=== PATIENT | female | born 1990 | race Caucasian/White ===

== ENCOUNTER 2017-02-17 05:03 | Inpatient (IN) ==
--- NOTE | 2017-02-16 16:09 | HISTORY AND PHYSICAL ---
ADMITTING DIAGNOSES: 1. Term for repeat section. 2. Tubal sterilization. SUMMARY: Zohreh Munson is a 26-year-old, 4, para 1-0-2-1, who is at term gestation. She is requesting a repeat . She also desires tubal sterilization. She is aware that this is a permanent and nonreversible procedure. She is aware of the alternative control methods available to her. We have also discussed the recognized failure rate of tubal sterilization. PAST MEDICAL HISTORY: Patient has had a previous section. She has also had a spontaneous AB and she has had an ectopic that required a right salpingo-oophorectomy. CURRENT MEDICATIONS: vitamins. ALLERGIES: None. PHYSICAL EXAMINATION: GENERAL: Shows a well-developed, well-nourished, gravid female. VITAL SIGNS: Stable. She is afebrile. CARDIOVASCULAR: Regular rate and rhythm without murmurs, rubs, or gallops. PULMONARY: Clear. BREASTS: No masses. ABDOMEN: Gravid. Cervix is closed. EXTREMITIES: No clubbing, edema or cyanosis. IMPRESSION: 1. Term . 2. Previous requesting repeat . 3. Undesired fertility. PLAN: We will proceed with repeat and tubal sterilization. Risks of surgery including pain, bleeding, infection, bowel or bladder injury, anesthesia complications have been discussed. We again discussed permanent nonreversible nature of tubal sterilization. cc: Bruno Escobar MD
[2017-02-17] MEDS ORDERED: KEFZOL 1 GM/D5W 1 GM/50 ML IVPB IV PRN (05:04)
[2017-02-17] MEDS ORDERED: LR 1,000 ML IV SCH ×2 (05:04→06:00)
[2017-02-17] MEDS ORDERED: BICITRA PO ONE (05:45)
[2017-02-17] MEDS ORDERED: PEPCID IV ONE (05:45)
[2017-02-17 05:49] LABS: URINE SOURCE VOIDED
[2017-02-17 05:49] LABS: MANUAL DIFF NEEDED? NO
[2017-02-17 05:50] LABS: BASO% 0.4 % (0.0-0.8); EOS# 0.16 X1000 (0.0-0.7); EOS% 1.4 % (0.0-10.0); HEMATOCRIT 34.5 % (37.0-47.0); HEMOGLOBIN 11.9 g/dL (12.0-16.0); IMM GRAN# 0.12 X1000 (0.0-0.04); IMM GRAN% 1.1 % (0.0-0.5); LYMPH# 2.72 X1000 (1.2-3.4); LYMPH% 24.4 % (20.5-51.1); MCH 31.3 PG (27-31); MCHC 34.5 g/dL (33-37); MCV 90.8 FL (81-99); MONO# 1.18 X1000 (0.11-0.59); MONO% 10.6 % (1.7-9.3); MPV 10.9 FL (7.4-10.4); NEUT% 62.1 % (42.2-75.2); PLT 227 X1000 (130-400)
[2017-02-17 06:04] LABS: BILIRUBIN URINE NEGATIVE (NEGATIVE); BLOOD URINE NEGATIVE (NEGATIVE); CLARITY CLEAR (CLEAR); COLOR YELLOW; GLUCOSE URINE NEGATIVE (NEGATIVE); LEUKOCYTES URINE 1+ (NEGATIVE); NITRITE URINE NEGATIVE (NEGATIVE); PROTEIN URINE NEGATIVE (NEGATIVE); SP GRAVITY URINE 1.015; UROBILINOGEN URINE NORMAL
[2017-02-17 06:08] LABS: UR AMPHETAMINES QUAL NONE DETECTED (NONE DETECT); UR BARBITUATES QUAL NONE DETECTED (NONE DETECT); UR BENZODIAZEPIN QUAL NONE DETECTED (NONE DETECT); UR CANNABINOIDS QUAL NONE DETECTED (NONE DETECT); UR COCAINE QUAL NONE DETECTED (NONE DETECT); UR MDMA QUAL NONE DETECTED (NONE DETECT); UR METHADONE QUAL NONE DETECTED (NONE DETECT); UR METHAMPHETAMINE QUAL NONE DETECTED (NONE DETECT); UR OPIATES QUAL NONE DETECTED (NONE DETECT); UR OXYCODONE QUAL NONE DETECTED (NONE DETECT); UR PCP QUAL NONE DETECTED (NONE DETECT); UR TCA QUAL NONE DETECTED (NONE DETECT)
[2017-02-17] MEDS ORDERED: DURAMORPH ONE (06:34)
[2017-02-17] MEDS ORDERED: NS 100 ML ONE (07:01)
[2017-02-17] MEDS ORDERED: NEO-SYNEPHRINE ONE (07:01)
[2017-02-17] MEDS ORDERED: ZOFRAN ONE (07:05)
[2017-02-17] MEDS ORDERED: PITOCIN ONE (07:07)
[2017-02-17] MEDS ORDERED: METHERGINE ONE (07:11)
[2017-02-17] MEDS ORDERED: PITOCIN 20 UNITS/LR 40 UNITS/2,000 ML IV.SOLN ONE (07:11)
[2017-02-17] MEDS ORDERED: TORADOL ONE (07:30)
--- NOTE | 2017-02-17 08:01 | OPERATIVE NOTE ---
PROCEDURE DATE: 02/17/2017 SURGEON: Bruno Escobar MD GASKET MAKER: Vito Shanks MD ANESTHESIA: Spinal. OPERATION PERFORMED: Repeat low transverse with bilateral fimbriectomy. PREOPERATIVE DIAGNOSES: 1. Term . 2. Previous requesting repeat section. 3. Undesired fertility. POSTOPERATIVE DIAGNOSES: 1. Term . 2. Previous requesting repeat section. 3. Undesired fertility. FINDINGS: At 0707, a 7 pound 1 ounce male infant was delivered in a vertex presentation. Apgars were 9 at 1 minute and 10 at 5 minutes. The proximal portion of the right tube was surgically absent. The fimbria was still present PROCEDURE IN DETAIL: The patient was taken back to the operating room where spinal anesthetic was placed. She was then placed in the supine position with the left lateral tilt. The abdomen was prepped and draped in the usual sterile fashion after Holt catheter was placed. Once satisfactory conduction anesthesia was demonstrated, a repeat Pfannenstiel incision was made. This incision was taken down to the fascia. The fascia was excised transversely. The underlying rectus muscles were bluntly and sharply dissected free. The rectus muscle were in the midline. The peritoneum was entered. Lower uterine segment was identified and a bladder flap was created. A low transverse incision was made across the myometrium. This incision was extended laterally using digital pressure. Membranes were ruptured revealing clear fluid. The infant's head was delivered through this incision without difficulty. The nuchal cord was reduced. The shoulders and body delivered without complications. Oropharynx was bulb suctioned. The cord was clamped and cut, and was handed to the nurses for further care and evaluation. Cord blood was obtained. Placenta was manually removed. The uterus delivered on abdominal wall and explored. All membrane fragments removed. The myometrium was then reapproximated using a running #1 chromic interlocking suture. Complete hemostasis was noted across the suture line. At this point, the left fallopian tube was identified and a fimbriectomy was performed by doubly ligating the distal portion of the tube and excising the fimbriated end. The patient previously had an ectopic on the right side and the proximal portion of the tube was missing. There was a rather long piece of fimbria and to decrease the risk of any ectopic , that distal portion of the tube was doubly ligated and excised. The uterus was placed back in pelvic cavity. Uterine incision and tubal ligation sites were identified and found to be hemostatic. Our first sponge, instrument, and needle count reported as correct. Thus, the peritoneum was closed using a running chromic suture. Second sponge, instrument, and needle count reported as correct. The fascia closed using running Vicryl sutures x2. The adipose tissue was reapproximated using a running 3-0 Vicryl suture, and the skin edges were reapproximated using a 4-0 Biosyn. Blood loss estimated at 500 mL. There were no complications. The patient went to recovery room in stable condition. cc: Bruno Escobar MD
[2017-02-17] MEDS ORDERED: NARCAN INJ PRN (08:28)
[2017-02-17] MEDS ORDERED: ZOFRAN ODT PO PRN (08:28)
[2017-02-17] MEDS ORDERED: BENADRYL IV PRN (08:28)
[2017-02-17] MEDS ORDERED: ZOFRAN IV PRN ×2 (08:28)
[2017-02-17] MEDS ORDERED: PNEUMOVAX 23 IM ONE (08:30)
[2017-02-17] MEDS ORDERED: LR 500 ML IV ONE (12:45)
[2017-02-17] MEDS: TORADOL IV PRN ×2 (12:56→19:33)
[2017-02-17] MEDS: PITOCIN 10 UNITS/LR 10 UNIT/1,000 ML IV.SOLN IV SCH ×2 (13:53→21:55)
[2017-02-17] MEDS: MORPHINE IV PRN ×3 (16:34→21:28)
[2017-02-17] MEDS ORDERED: PITOCIN 20 UNITS/LR 20 UNITS/1,000 ML IV.SOLN IV ONE (16:47)
[2017-02-17] MEDS ORDERED: AMBIEN PO PRN (16:47)
[2017-02-17] MEDS ORDERED: HYDROXYZINE IM PRN (16:47)
[2017-02-17] MEDS ORDERED: CYTOTEC PO PRN (16:47)
[2017-02-17] MEDS ORDERED: HYDROXYZINE PO PRN (16:47)
[2017-02-17] MEDS ORDERED: BOOSTRIX VACCINE IM ONE (16:47)
[2017-02-17] MEDS ORDERED: PITOCIN IM PRN (16:47)
[2017-02-17] MEDS ORDERED: DEMEROL PO PRN ×2 (16:47)
[2017-02-17] MEDS ORDERED: DULCOLAX PR PRN (16:47)
[2017-02-17] MEDS ORDERED: DEMEROL IM PRN (16:47)
[2017-02-17] MEDS ORDERED: PHENERGAN IM PRN (16:47)
[2017-02-17] MEDS ORDERED: M-M-R II VACCINE SUBQ ONE (16:47)
[2017-02-17] MEDS ORDERED: MYLICON PO PRN (16:47)
[2017-02-17] MEDS ORDERED: PERCOCET-5 PO PRN (16:47)
[2017-02-17] MEDS ORDERED: PITOCIN 10 UNITS/LR 10 UNIT/1,000 ML IV.SOLN IV SCH (17:00)
[2017-02-17] MEDS: MYLICON PO SCH ×2 (19:33→21:23)
[2017-02-17] MEDS: PERICOLACE PO SCH (21:23)
[2017-02-18] MEDS: TORADOL IV PRN (01:09)
[2017-02-18 06:45] LABS: HEMATOCRIT 26.4 % (37.0-47.0); HEMOGLOBIN 8.5 g/dL (12.0-16.0); MCH 30.5 PG (27-31); MCHC 32.2 g/dL (33-37); MCV 94.6 FL (81-99); MPV 11.1 FL (7.4-10.4); RBC 2.79 XMIL (4.2-5.4)
[2017-02-18] MEDS: PERCOCET-10 PO PRN ×4 (08:24→19:20)
[2017-02-18] MEDS: MOTRIN PO PRN ×2 (08:25→19:20)
[2017-02-18] MEDS: MYLICON PO SCH ×4 (08:25→21:34)
[2017-02-18] MEDS ORDERED: LR 1,000 ML IV SCH (16:47)
[2017-02-18] MEDS: PERICOLACE PO SCH (21:34)
[2017-02-19] MEDS: PERCOCET-10 PO PRN ×2 (03:00→09:23)
[2017-02-19] MEDS: MOTRIN PO PRN (03:00)
[2017-02-19 07:56] VITALS: BP 126/83
--- NOTE | 2017-02-19 08:46 | DISCHARGE SUMMARY ---
ADMISSION DATE: 02/17/2017 DISCHARGE DATE: 02/19/2017 PRINCIPAL DIAGNOSIS: Term intrauterine , previous section, multiparity. PROCEDURE PERFORMED: Repeat low transverse section, bilateral fimbriectomy. HOSPITAL COURSE: The patient was admitted by Dr. Escobar and underwent a repeat section and bilateral fimbriectomy. Postoperatively she did well. Postop hematocrit was 26. On postoperative day number 2, she desired to be discharged home. She was given a prescription for Percocet. She will be followed up in the office in a week. Discharge instructions were given. cc: MD Bruno Mcpherson MD
[2017-02-19] MEDS: MYLICON PO SCH (09:24)
== END 2017-02-19 09:40 | disposition home or self-care (01) ==
LOC: P.LD 05:03
PROVIDERS: ADMIT Obstetrics & Gynecology; ATTEND Obstetrics & Gynecology